=== PATIENT | male | born 1965 | race Caucasian/White ===

== ENCOUNTER 2024-10-07 08:46 | Outpatient (RCR) | payer OTHER, SELFPAY | END 2024-10-07 23:59 | disposition home or self-care (01) | LOC: CRHB 08:46 | PROVIDERS: ATTENDING PHYSICIAN Internal Medicine; FAMILY PHYSICIAN Family Medicine | DX: I21.01 ST elevation (STEMI) myocardial infarction involving left main coronary artery (principal); I25.2 Old myocardial infarction (principal); Z95.5 Presence of coronary angioplasty implant and graft | CPT/HCPCS: 93797; 93798 ==

== ENCOUNTER 2024-10-31 07:55 | Outpatient (RCR) | payer OTHER, SELFPAY ==
[2024-10-31 14:02] LABS: HDL Cholesterol 25 mg/dl; LDL Cholesterol, Calculated 46 mg/dl; Total Cholesterol 84 mg/dl (50-199); Triglyceride 68 mg/dl (10-149); Very Low Density Lipoprotein 13 mg/dl (0-30)
== END 2024-10-31 11:56 | disposition home or self-care (01) ==
LOC: CRHB 07:55
PROVIDERS: ATTENDING PHYSICIAN Internal Medicine; FAMILY PHYSICIAN Family Medicine
DX: I21.01 ST elevation (STEMI) myocardial infarction involving left main coronary artery (principal); I25.2 Old myocardial infarction (principal); Z95.5 Presence of coronary angioplasty implant and graft
CPT/HCPCS: 36415; 80061; 93797; 93798